=== PATIENT | female | born 1980 | race Caucasian/White ===

== ENCOUNTER 2018-12-28 15:39 | Emergency (ER) | payer OTHER ==
[2018-12-28] MEDS ORDERED: HYDROCODONE/APAP 10/325 TAB ONE (16:21)
[2018-12-28] MEDS ORDERED: dexAMETHasone 10 MG/ML VIAL ONE (16:21)
[2018-12-28] MEDS ORDERED: CYCLOBENZAPRINE 10 MG TAB ONE (16:21)
--- NOTE | 2018-12-28 16:58 | EDPHYS ---
Physician Documentation [facility] Name: Claire Bar Age: 38 yrs Sex: Female : 1980 Arrival Date: 12/28/2018 Time: 15:40 Bed 6 Private MD: Unknown, Unknown ED Physician Arturo Roy HPI: 12/28 16:23 This 38 yrs old Female presents to ER via Wheelchair with complaints of Back pm1 Pain. 16:23 The patient presents with pain that is acute. The symptoms are located in the low back. pm1 Onset: The symptoms/episode began/occurred this morning. The pain radiates to the left leg. Associated signs and symptoms: Pertinent negatives: dysuria, fever, incontinence, numbness, tingling. The problem was sustained when bending over. Modifying factors: The patient symptoms are alleviated by remaining still, the patient symptoms are aggravated by movement. Severity of symptoms: in the emergency department the symptoms are actually worse. The patient has experienced similar episodes in the past, multiple times, chronically. The patient has not recently seen a physician. Patient with reported herniated discs to between L3, L4, and L5 since 19 years of age. Has chronic pain with some flare up that are usually managed with OTC NSAIDs. Today she bent over to pickup something from the kitchen and got stuck. Took some NSAIDs prior to arrival without improvement . Historical: - Allergies: 15:47 No Known Allergies; la1 - PMHx: 15:47 None; la1 - Immunization history:: Adult Immunizations up to date. - Social history:: Smoking status: Patient/guardian denies using tobacco. - Ebola Screening: : No symptoms or risks identified at this time. ROS: 16:23 Constitutional: Negative for fever, chills, and weight loss, Eyes: Negative for injury, pm1 pain, redness, and discharge, ENT: Negative for injury, pain, and discharge, Neck: Negative for injury, pain, and swelling, Cardiovascular: Negative for chest pain, palpitations, and edema, Respiratory: Negative for shortness of breath, cough, wheezing, and pleuritic chest pain, Abdomen/GI: Negative for abdominal pain, nausea, vomiting, diarrhea, and constipation. 16:23 : Negative for injury, bleeding, discharge, and swelling, MS/Extremity: Negative for injury and deformity, Skin: Negative for injury, rash, and discoloration, Neuro: Negative for headache, weakness, numbness, tingling, and seizure. 16:23 Back: Positive for pain at rest, pain with movement, of the lumbar area. Exam: 16:30 Constitutional: This is a well developed, well nourished patient who is awake, alert, pm1 and in no acute distress. Head/Face: Normocephalic, atraumatic. Neck: Trachea midline, no thyromegaly or masses palpated, and no cervical lymphadenopathy. Supple, full range of motion without nuchal rigidity, or vertebral point tenderness. No Meningismus. Chest/axilla: Normal chest wall appearance and motion. Nontender with no deformity. No lesions are appreciated. Cardiovascular: Regular rate and rhythm with a normal S1 and S2. No gallops, murmurs, or rubs. Normal PMI, no JVD. No pulse deficits. Respiratory: Lungs have equal breath sounds bilaterally, clear to auscultation and percussion. No rales, rhonchi or wheezes noted. No increased work of breathing, no retractions or nasal flaring. Abdomen/GI: Soft, non-tender, with normal bowel sounds. No distension or tympany. No guarding or rebound. No evidence of tenderness throughout. 16:30 Skin: Warm, dry with normal turgor. Normal color with no rashes, no lesions, and no evidence of cellulitis. MS/ Extremity: Pulses equal, no cyanosis. Neurovascular intact. Full, normal range of motion. 16:30 Back: pain, of the lumbar area and left low back, normal spinal alignment noted. 16:30 Neuro: Orientation: is normal, Motor: is normal, moves all fours, Able to dorsiflex and plantar flex bilateral great toes 5/5 strength, Sensation: is normal, no obvious gross deficits. Vital Signs: 15:47 BP 133 / 87; Pulse 78; Resp 17; Temp 98.3; Pulse Ox 100% on R/A; Weight 73.48 kg; la1 Height 5 ft. 5 in. (165.10 cm); 15:53 BP 130 / 78; Pulse 80; Resp 16; Pulse Ox 100% ; bp 17:00 BP 133 / 94; Pulse 78; Resp 16; Pulse Ox 99% ; bp 15:47 Body Mass Index 26.96 (73.48 kg, 165.10 cm) la1 MDM: 15:57 Patient medically screened. pm1 16:29 ED course: No prescription history present for in [facility] . pm1 16:32 Data reviewed: vital signs. Data interpreted: Pulse oximetry: on room air is 100 %. pm1 Interpretation: normal. 16:56 Counseling: I had a detailed discussion with the patient and/or guardian regarding: the pm1 historical points, exam findings, and any diagnostic results supporting the discharge/admit diagnosis, the need for outpatient follow up, for definitive care, a family practitioner, a neurosurgeon, MRI and/or physical therapy if not considering surgery, to return to the emergency department if symptoms worsen or persist or if there are any questions or concerns that arise at home. Administered Medications: 16:20 Drug: Decadron 10 mg Route: IM; Site: affected area; bp 16:59 Follow up: Response: Pain is decreased bp 16:20 Drug: [place] 10 mg-325 mg 1 tabs Route: PO; bp 16:59 Follow up: Response: Pain is decreased bp 16:20 Drug: Flexeril 10 mg Route: PO; bp 16:59 Follow up: Response: Pain is decreased bp 17:00 Drug: fentaNYL (PF) 50 mcg Route: IM; Site: right gluteus; bp 17:17 Follow up: Response: Pain is decreased bp Disposition: 12/29 07:13 Co-signature as Attending Physician, Arturo Roy MD I agree with the assessment and kdr plan of care. Disposition: 12/28/18 16:57 Discharged to Home. Impression: Low back pain. - Condition is Stable. - Discharge Instructions: Back Pain, Adult, Herniated Disk. - Prescriptions for Tylenol- Codeine #3 300-30 mg Oral Tablet - take 2 tablets by ORAL route every 6 hours As needed; 20 tablet. Cyclobenzaprine 10 mg Oral Tablet - take 1 tablet by ORAL route every 8 hours As needed; 30 tablet. Medrol (Benedict) 4 mg Oral Tablets, Dose Pack - take 1 tablet by ORAL route as directed - follow package instructions; 1 packet. - Work release form, Medication Reconciliation Form, Thank You Letter, Antibiotic Education, Prescription Opioid Use form. - Follow up: Emergency Department; When: As needed; Reason: Worsening of condition. Follow up: Private Physician; When: 2 - 3 days; Reason: Recheck today's complaints, Continuance of care, Re-evaluation by your physician. - Problem is new. - Symptoms have improved. Signatures: Arturo Roy MD MD [facility] Duy Shepard RN RN la1 Juan Ordonez, LIVESTOCK BUYER LIVESTOCK BUYER pm1 Charles Argueta, RN RN bp Corrections: (The following items were deleted from the chart) 12/28 17:17 16:57 12/28/2018 16:57 Discharged to Home. Impression: Low back pain. Condition is bp Stable. Discharge Instructions: Back Pain, Adult, Herniated Disk. Prescriptions for Tylenol-Codeine #3 300-30 mg Oral Tablet - take 2 tablet by ORAL route every 6 hours As needed; 30 tablet, Cyclobenzaprine 10 mg Oral Tablet - take 1 tablet by ORAL route every 8 hours As needed; 30 tablet, Medrol (Benedict) 4 mg Oral Tablets, Dose Pack - take 1 tablet by ORAL route as directed - follow package instructions; 1 packet. and Forms are Medication Reconciliation Form, Thank You Letter, Antibiotic Education, Prescription Opioid Use. Follow up: Emergency Department; When: As needed; Reason: Worsening of condition. Follow up: Private Physician; When: 2 - 3 days; Reason: Recheck today's complaints, Continuance of care, Re-evaluation by your physician. Problem is new. Symptoms have improved. pm1
--- NOTE | 2018-12-28 16:58 | ER ---
Nurse's Notes [facility] Name: Claire Bar Age: 38 yrs Sex: Female : 1980 Arrival Date: 12/28/2018 Time: 15:40 Bed 6 Private MD: Unknown, Unknown Diagnosis: Low back pain Presentation: 12/28 15:46 Presenting complaint: Patient states: I bent over this morning to pick something up and la1 my back went out, I have some herniated disks, has happened a few times in the past. to advil at home. Transition of care: patient was not received from another setting of care. Onset of symptoms was December 28, 2018. Risk Assessment: Do you want to hurt yourself or someone else? Patient reports no desire to harm self or others. Initial Sepsis Screen: Does the patient meet any 2 criteria? No. Patient's initial sepsis screen is negative. Does the patient have a suspected source of infection? No. Patient's initial sepsis screen is negative. Care prior to arrival: None. 15:46 Method Of Arrival: Wheelchair la1 15:46 Acuity: KLEBER 4 la1 Triage Assessment: 15:51 General: Appears in no apparent distress. uncomfortable, obese, Behavior is bp cooperative, appropriate for age, anxious. Pain: Complains of pain in back. EENT: No deficits noted. Neuro: No deficits noted. Cardiovascular: No deficits noted. Respiratory: No deficits noted. GI: No signs and/or symptoms were reported involving the gastrointestinal system. : No signs and/or symptoms were reported regarding the genitourinary system. Derm: No deficits noted. Musculoskeletal: Circulation, motion, and sensation intact. Range of motion: intact in all extremities. Historical: - Allergies: 15:47 No Known Allergies; la1 - PMHx: 15:47 None; la1 - Immunization history:: Adult Immunizations up to date. - Social history:: Smoking status: Patient/guardian denies using tobacco. - Ebola Screening: : No symptoms or risks identified at this time. Screenin:00 Abuse screen: Denies threats or abuse. Denies injuries from another. Nutritional bp screening: No deficits noted. Tuberculosis screening: No symptoms or risk factors identified. Fall Risk None identified. Assessment: 15:51 General: SEE TRIAGE NOTE. Neuro: No deficits noted. bp 17:14 Reassessment: PT D/C HOME VIA W/C WITH FAMILY, DX WITH LUMBAR PAIN. bp Vital Signs: 15:47 BP 133 / 87; Pulse 78; Resp 17; Temp 98.3; Pulse Ox 100% on R/A; Weight 73.48 kg; la1 Height 5 ft. 5 in. (165.10 cm); 15:53 BP 130 / 78; Pulse 80; Resp 16; Pulse Ox 100% ; bp 17:00 BP 133 / 94; Pulse 78; Resp 16; Pulse Ox 99% ; bp 15:47 Body Mass Index 26.96 (73.48 kg, 165.10 cm) la1 ED Course: 15:40 Patient arrived in ED. ag5 15:40 Unknown, Unknown is Private Physician. ag5 15:47 Triage completed. la1 15:47 Arm band placed on left wrist. la1 15:51 Charles Argueta, RADHA is Primary Nurse. bp 15:54 Juan Ordonez NP is PHCP. pm1 15:54 Arturo Roy MD is Attending Physician. pm1 16:00 Patient has correct armband on for positive identification. Bed in low position. Call bp light in reach. Side rails up X2. Adult w/ patient. 17:15 No provider procedures requiring assistance completed. Patient did not have IV access bp during this emergency room visit. Administered Medications: 16:20 Drug: Decadron 10 mg Route: IM; Site: affected area; bp 16:59 Follow up: Response: Pain is decreased bp 16:20 Drug: [place] 10 mg-325 mg 1 tabs Route: PO; bp 16:59 Follow up: Response: Pain is decreased bp 16:20 Drug: Flexeril 10 mg Route: PO; bp 16:59 Follow up: Response: Pain is decreased bp 17:00 Drug: fentaNYL (PF) 50 mcg Route: IM; Site: right gluteus; bp 17:17 Follow up: Response: Pain is decreased bp Outcome: 16:57 Discharge ordered by . pm1 17:15 Discharged to home via wheelchair, with family. bp 17:15 Condition: improved 17:15 Discharge instructions given to patient, Instructed on discharge instructions, follow up and referral plans. medication usage, Demonstrated understanding of instructions, follow-up care, medications, Prescriptions given X 3. 17:17 Patient left the ED. bp Signatures: Duy Shepard RN RN la1 Juan Ordonez, AUGER MACHINE OFFBEARER AUGER MACHINE OFFBEARER pm1 Charles Argueta RN RN bp Nishant Gleason ag5 Corrections: (The following items were deleted from the chart) 15:47 15:47 BP 133 / 87; Pulse 78bpm; Resp 71bpm; Pulse Ox 100% RA; Temp 98.3F; 73.48 kg; la1 Height 5 ft. 5 in.; BMI: 26.9; la1
[2018-12-28] MEDS ORDERED: FENTANYL CITR 100 MCG/2 ML ONE (17:02)
[2018-12-28 18:52] VITALS: TEMP 98.3
[2018-12-28 18:54] VITALS: BP 133/94; O2SAT 99
== END 2018-12-28 17:17 | disposition home or self-care (01) ==
LOC: ER 15:39
DX: M54.5 Low back pain (principal)
CPT/HCPCS: 96372; 99283; J3010; J1100

== ENCOUNTER 2021-01-07 06:05 | Emergency (ER) | payer OTHER ==
[2021-01-07] MEDS ORDERED: TETRACAINE HCL 0.5% 4ML OPTH ONE (06:55)
[2021-01-07] MEDS ORDERED: FLUORESCEIN SODIUM 1 MG/WRAP ONE (06:55)
[2021-01-07] MEDS ORDERED: IBUPROFEN 400 MG TAB ONE (07:48)
[2021-01-07] MEDS ORDERED: HYDROCODONE/APAP 5/325 MG TAB ONE (07:48)
--- NOTE | 2021-01-07 08:13 | ER ---
Nurse's Notes [facility] Name: Claire Bar Age: 40 yrs Sex: Female : 1980 Arrival Date: 01/07/2021 Time: 06:08 Bed 8 Private MD: Diagnosis: Unspecified acute conjunctivitis, right eye Presentation: 01/07 06:17 Chief complaint: Patient states: pt took contact out of rt eye yesterday, c/o pain, sj1 redness, and blurry vision. dx with conjunctivitis of the left eye last week. Coronavirus screen: Vaccine status: Patient reports receiving the 2nd dose of the covid vaccine. Ebola Screen: No symptoms or risks identified at this time. Mechanism of Injury: No Mechanism of Injury. The patient denies any loss of vision. Initial Sepsis Screen: Does the patient meet any 2 criteria? No. Patient's initial sepsis screen is negative. Does the patient have a suspected source of infection? No. Patient's initial sepsis screen is negative. Risk Assessment: Do you want to hurt yourself or someone else? Patient reports no desire to harm self or others. Onset of symptoms was January 06, 2021. 06:17 Method Of Arrival: Ambulatory sj 06:17 Method Of Arrival: Ambulatory sj 06:17 Acuity: KLEBER 4 sj1 Triage Assessment: 06:21 General: Appears in no apparent distress. Behavior is calm, cooperative, appropriate sj1 for age. Pain: Complains of pain in rt eye Pain does not radiate. Pain currently is 10 out of 10 on a pain scale. at worst was 10 out of 10 on a pain scale. level that patient reports is acceptable is 0 out of 10 on a pain scale. Quality of pain is described as stabbing, Pain began gradually, Is continuous, Alleviated by nothing. EENT: Reports blurred vision in iris of right eye. Neuro: Level of Consciousness is awake, alert, obeys commands, Oriented to person, place, time, situation. Cardiovascular: No deficits noted. Respiratory: No deficits noted. GI: No signs and/or symptoms were reported involving the gastrointestinal system. : No signs and/or symptoms were reported regarding the genitourinary system. Derm: No signs and/or symptoms reported regarding the dermatologic system. Musculoskeletal: No signs and/or symptoms reported regarding the musculoskeletal system. 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 - Social history:: Smoking status: Patient denies any tobacco usage or history of. Patient uses alcohol, occasionally. Patient/guardian denies using street drugs. Screenin:24 Abuse screen: Denies threats or abuse. Denies injuries from another. Nutritional sj1 screening: No deficits noted. Tuberculosis screening: No symptoms or risk factors identified. Fall Risk None identified. Assessment: 06:24 EENT: Eyes Sclera/Cornea are reddened in outer aspect of conjuctiva of right eye and sj1 inner aspect of conjuctiva of right eye. Vital Signs: 06:17 BP 142 / 90; Pulse 91; Resp 18 S; Temp 98.9(O); Pulse Ox 100% on R/A; Weight 77.11 kg sj1 (R); Height 5 ft. 5 in. (165.10 cm); Pain 10/10; 06:17 Body Mass Index 28.29 (77.11 kg, 165.10 cm) sj1 Visual Acuity: 07:41 Left Eye Visual acuity 20/25, Pupil size 3 mm, ; Right Eye Visual acuity 20/50, Pupil ch5 size 3 mm, ; Both Eyes Visual acuity 20/25; With Lenses; ED Course: 06:08 Patient arrived in ED. bp1 06:21 Triage completed. sj1 06:21 Arm band placed on. sj1 06:24 Patient has correct armband on for positive identification. Bed in low position. Call 1 light in reach. Side rails up X 1. 06:24 No provider procedures requiring assistance completed. sj1 07:07 Deanne Molina, RN is Primary Nurse. iw 07:09 Vitaliy Barragan PA is PHCP. cp 07:09 Sb Gates MD is Attending Physician. cp 07:15 Attending Physician role handed off by Sb Gates MD [place] 07:15 Vitaliy Palafox MD is Attending Physician. solange 08:12 Jasmin Sorensen MD is Referral Physician. cp 09:08 Patient did not have IV access during this emergency room visit. iw Administered Medications: 07:14 Drug: Tetracaine Drops 0.5 % 1 drops {Note: Administered by Vitaliy ODOM.} Route: ch5 Ophthalmic; Site: left eye; 07:26 Drug: HYDROcodone-acetaminophen 5 mg-325 mg 1 tabs Route: Feeding Tube; ch5 07:26 Drug: Ibuprofen 800 mg Route: PO; ch5 07:45 Follow up: Response: No adverse reaction iw 09:02 Drug: Vigamox (moxifloxacin) Drops 0.5 % 1 drops Route: Ophthalmic; Site: right eye; ch5 Outcome: 08:12 Discharge ordered by . cp 09:08 Discharged to home ambulatory, with family. 5 09:08 Condition: improved 09:08 Discharge instructions given to patient, family, Prescriptions given X 1. 09:09 Patient left the ED. ch5 Signatures: Vitaliy Palafox MD MD cha Williams, Irene RN RN iw Vitaliy Barragan PA PA cp Paniauga, Brittany bp1 Heath, Christopher, RN RN ch5 Lenora Reyes RN RN sj1 Corrections: (The following items were deleted from the chart) 07:14 07:14 Tetracaine Drops 0.5 % 1 drops Ophthalmic in left eye ch5 ch5
--- NOTE | 2021-01-07 08:13 | EDPHYS ---
Physician Documentation [facility] Name: Claire Bar Age: 40 yrs Sex: Female : 1980 Arrival Date: 01/07/2021 Time: 06:08 Bed 8 Private MD: LARRY Physician Vitaliy Palafox HPI: 01/07 07:15 This 40 yrs old Female presents to ER via Ambulatory with complaints of Eye cp Problem, Eye Pain. 07:15 The patient is experiencing pain, redness, to the right eye. Onset: The cp symptoms/episode began/occurred yesterday. Duration: the symptoms are continuous. 07:15 Patient wears soft contacts. cp 07:15 Associated signs and symptoms: Pertinent negatives: ear ache, fever, runny nose, sore cp throat, drainage from eye. Patient reports pain and redness to right eye started yesterday after removing contact lens. Patient reports having similar symptoms 1 week ago and being prescribed eye drops. Patient reports symptoms seemed to improve and so she wore contact lenses yesterday and pain and redness to right eye started. 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 - Social history:: Smoking status: Patient denies any tobacco usage or history of. Patient uses alcohol, occasionally. Patient/guardian denies using street drugs. ROS: 07:15 Eyes: Positive for pain, redness, of the right eye, Negative for discharge, foreign cp body sensation. 07:15 Constitutional: Negative for fever. cp 07:15 ENT: Negative for drainage from ear(s), ear pain, sore throat, hoarseness. 07:15 Respiratory: Negative for cough, shortness of breath, wheezing. 07:15 Abdomen/GI: Negative for abdominal pain, nausea, vomiting, and diarrhea. 07:15 Skin: Negative for rash. 07:15 Neuro: Negative for altered mental status, headache. 07:15 All other systems are negative. Exam: 07:20 Constitutional: The patient appears in no acute distress, alert, awake, non-toxic, well cp developed, well nourished, uncomfortable. 07:20 Head/Face: Normocephalic, atraumatic. cp 07:20 Eyes: Periorbital structures: appear normal, Pupils: equal, round, and reactive to light and accomodation, Extraocular movements: intact throughout, Conjunctiva: injected, in the right eye, Corneas: abrasion, is not appreciated, foreign body, is not appreciated, a fluorescein strip employed to appreciate the findings, Sclera: no appreciated abnormality, Lids and lashes: appear normal, bilaterally, Examination of the other eye reveals no obvious gross abnormality. 07:20 ENT: External ear(s): are unremarkable, Nose: is normal, Mouth: Lips: moist, Oral mucosa: moist, Posterior pharynx: Airway: no evidence of obstruction, patent. 07:20 Neck: ROM/movement: is normal, is supple, without pain, no range of motions limitations, Lymph nodes: no appreciated lymphadenopathy. 07:20 Chest/axilla: Inspection: normal. 07:20 Cardiovascular: Rate: normal. 07:20 Respiratory: the patient does not display signs of respiratory distress, Respirations: normal. 07:20 Skin: cellulitis, is not appreciated, no rash present. Vital Signs: 06:17 BP 142 / 90; Pulse 91; Resp 18 S; Temp 98.9(O); Pulse Ox 100% on R/A; Weight 77.11 kg sj1 (R); Height 5 ft. 5 in. (165.10 cm); Pain 10/10; 06:17 Body Mass Index 28.29 (77.11 kg, 165.10 cm) sj1 Visual Acuity: 07:41 Left Eye Visual acuity 20/25, Pupil size 3 mm, ; Right Eye Visual acuity 20/50, Pupil ch5 size 3 mm, ; Both Eyes Visual acuity 20/25; With Lenses; MDM: 07:15 Patient medically screened. solange 07:30 Differential diagnosis: Corneal abrasion of Corneal ulcer of Foreign body in Acute cp iritis of 08:11 Data reviewed: vital signs, nurses notes, and as a result, I will discharge patient. cp 08:11 Counseling: I had a detailed discussion with the patient and/or guardian regarding: the cp historical points, exam findings, and any diagnostic results supporting the discharge/admit diagnosis, the need for outpatient follow up, an opthalmologist, to return to the emergency department if symptoms worsen or persist or if there are any questions or concerns that arise at home. 01/07 07:09 Order name: Eye Tray cp 01/07 07:09 Order name: Fluoresene Opth strip cp 01/07 07:09 Order name: Visual Acuity; Complete Time: 07:41 cp Administered Medications: 07:14 Drug: Tetracaine Drops 0.5 % 1 drops {Note: Administered by Vitaliy ODOM.} Route: ch5 Ophthalmic; Site: left eye; 07:26 Drug: HYDROcodone-acetaminophen 5 mg-325 mg 1 tabs Route: Feeding Tube; 5 07:26 Drug: Ibuprofen 800 mg Route: PO; 5 07:45 Follow up: Response: No adverse reaction iw 09:02 Drug: Vigamox (moxifloxacin) Drops 0.5 % 1 drops Route: Ophthalmic; Site: right eye; 5 Disposition Summary: 01/07/21 08:12 Discharge Ordered Location: Home cp Problem: new cp Symptoms: have improved cp Condition: Stable cp Diagnosis - Unspecified acute conjunctivitis, right eye cp Followup: cp - With: Jasmin Sorensen MD - When: 1 - 2 days - Reason: Recheck today's complaints Discharge Instructions: - Discharge Summary Sheet cp - Bacterial Conjunctivitis, Adult cp - How to Use Eye Drops and Eye Ointments cp Forms: - Medication Reconciliation Form cp - Thank You Letter cp - Antibiotic Education cp - Prescription Opioid Use cp - Work release form eb Prescriptions: - Vigamox 0.5 % Ophthalmic Drops - instill 1 drop by OPHTHALMIC route every 8 hours for 7 days; 5 milliliter; cp Refills: 0, Product Selection Permitted Addendum: 01/10/2021 10:21 Co-signature as Attending Physician, Vitaliy Palafox MD I agree with the assessment and c walls plan of care. Signatures: Vitaliy Palafox MD MD cha Page, Corey, PA PA cp Heath, Christopher, RN RN ch5 Lenora Reyes RN RN sj1 Deanne Molina RN iw Corrections: (The following items were deleted from the chart) 01/08 07:13 01/07 07:15 Patient reports pain and redness to right eye started yesterday after cp removing contact lens. cp
[2021-01-07] MEDS ORDERED: MOXIFLOXACIN HCL 0.5% 3ML OPTH OPTH SCH (09:00)
[2021-01-07 09:14] VITALS: BP 142/90; TEMP 98.9; O2SAT 100
== END 2021-01-07 09:09 | disposition home or self-care (01) ==
LOC: ER 06:05
DX: H10.31 Unspecified acute conjunctivitis, right eye (principal); I10 Essential (primary) hypertension
CPT/HCPCS: 99283

== ENCOUNTER 2021-01-11 14:07 | Emergency (ER) | payer OTHER ==
[2021-01-11] MEDS ORDERED: dexAMETHasone 10 MG/ML VIAL ONE (15:01)
[2021-01-11] MEDS ORDERED: MEPERIDINE HCL 50 MG/ML ONE (15:01)
--- NOTE | 2021-01-11 15:13 | EDPHYS ---
Physician Documentation [facility] Name: Claire Bar Age: 40 yrs Sex: Female : 1980 Arrival Date: 01/11/2021 Time: 14:09 Bed 10 Private MD: ED Physician Sb Gates HPI: 01/11 15:05 This 40 yrs old Female presents to ER via Wheelchair with complaints of Back rn Pain. 15:05 The patient presents with pain that is acute. The symptoms are located in the low back. rn 15:05 Onset: The symptoms/episode began/occurred last night. The pain radiates to the left rn leg. Associated signs and symptoms: Pertinent negatives: abdominal pain, chest pain, constipation, dysuria, fever, headache, hematuria, incontinence, nausea, numbness, tingling, urinary retention, vomiting, weakness. Modifying factors: The patient symptoms are alleviated by remaining still, the patient symptoms are aggravated by any movement. Severity of symptoms: At their worst the symptoms were moderate, in the emergency department the symptoms are unchanged. The patient has experienced similar episodes in the past. The patient has not recently seen a physician. Patient reports bent over to pick something up last night and began again with lower back pain. Feels muscle spasm of back. No focal weakness or bladder or bowel problems. No fever. No direct trauma to the spine. Ambulatory. States this is happened multiple times in the past. No new symptoms. 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 - Social history:: Smoking status: Patient denies any tobacco usage or history of. - Family history:: not pertinent. - Hospitalizations: : No recent hospitalization is reported. ROS: 15:05 Constitutional: Negative for fever, chills, and weight loss, Cardiovascular: Negative rn for chest pain, palpitations, and edema, Respiratory: Negative for shortness of breath, cough, wheezing, and pleuritic chest pain, Abdomen/GI: Negative for abdominal pain, nausea, vomiting, diarrhea, and constipation, Back: Positive for left lower back pain : Negative for injury, bleeding, discharge, and swelling, MS/Extremity: Negative for injury and deformity, Skin: Negative for injury, rash, and discoloration, Neuro: Negative for headache, weakness, numbness, tingling, and seizure. Exam: 15:05 Constitutional: This is a well developed, well nourished patient who is awake, alert, rn appears uncomfortable sitting in wheelchair Head/Face: Normocephalic, atraumatic. Back: No spinal tenderness. Skin: Warm, dry MS/ Extremity: Pulses equal, no cyanosis. Neurovascular intact. Full, normal range of motion. Equal circumference. Neuro: Awake and alert, GCS 15. Motor strength 5/5 in all extremities. Sensory grossly intact. Vital Signs: 14:23 BP 151 / 90; Pulse 83; Resp 17; Temp 97.7(O); Pulse Ox 99% on R/A; Weight 77.11 kg; ap3 Height 5 ft. 5 in. (165.10 cm); Pain 9/10; 15:00 BP 148 / 85; Pulse 80; Resp 18; Temp 97.9(O); Pulse Ox 99% on R/A; sl2 14:23 Body Mass Index 28.29 (77.11 kg, 165.10 cm) ap3 MDM: 14:19 Patient medically screened. rn 15:05 Differential diagnosis: arthritis, chronic back pain, Osteoarthritis sprain, Muscle rn spasm, radiculopathy. Data reviewed: vital signs, nurses notes, and as a result, I will discharge patient. Counseling: I had a detailed discussion with the patient and/or guardian regarding: the historical points, exam findings, and any diagnostic results supporting the discharge/admit diagnosis, the need for outpatient follow up, to return to the emergency department if symptoms worsen or persist or if there are any questions or concerns that arise at home. Response to treatment: the patient's symptoms have markedly improved after treatment, and as a result, I will discharge patient. Special discussion: I discussed with the patient/guardian in detail that at this point there is no indication for admission to the hospital. It is understood, however, that if the symptoms persist or worsen the patient needs to return immediately for re-evaluation. Based on the history and exam findings, there is no indication for further emergent testing or inpatient evaluation. I discussed with the patient/guardian the need to see the back specialist for further evaluation of the symptoms. 15:05 ED course: No new symptoms, pain and symptoms identical to previous chronic back pain rn episodes. No direct trauma. No indication for emergent imaging at this time. Feels better, will DC home with PCP follow-up and return precautions. 01/11 14:29 Order name: IV Start; Complete Time: 14:56 rn Administered Medications: 02:49 Drug: Decadron - Dexamethasone 10 mg Route: IVP; Site: left antecubital; sl2 15:30 Follow up: Response: No adverse reaction; Pain is decreased sl2 02:53 Drug: Demerol (meperidine) 50 mg Route: IVP; Site: left antecubital; sl2 15:30 Follow up: Response: No adverse reaction; Pain is decreased sl2 Disposition Summary: 01/11/21 15:12 Discharge Ordered Location: Home rn Problem: new rn Symptoms: have improved rn Condition: Stable rn Diagnosis - Low back pain rn - Muscle spasm of back rn - Intervertebral disc disorders with radiculopathy, lumbar region rn Followup: rn - With: Private Physician - When: As needed - Reason: Recheck today's complaints, Re-evaluation by your physician Discharge Instructions: - Discharge Summary Sheet rn - Acute Back Pain, Adult rn - Lumbosacral Radiculopathy rn - Muscle Cramps and Spasms rn Forms: - Medication Reconciliation Form rn - Thank You Letter rn - Antibiotic kinesiology internship - Prescription Opioid Use rn - Work release form ap3 Prescriptions: - Cyclobenzaprine 10 mg Oral Tablet - take 1 tablet by ORAL route every 8 hours As needed; 15 tablet; Refills: 0, rn Product Selection Permitted - Medrol (Benedict) 4 mg Oral Tablets, Dose Pack - take 1 tablet by ORAL route as directed - follow package instructions; 1 rn packet; Refills: 0, Product Selection Permitted Signatures: Sb Gates MD MD rn Lindsay Lee RN RN ap3 Reema Jean RN RN sl2
--- NOTE | 2021-01-11 15:13 | ER ---
Nurse's Notes [facility] Name: Claire Bar Age: 40 yrs Sex: Female : 1980 Arrival Date: 01/11/2021 Time: 14:09 Bed 10 Private MD: Diagnosis: Low back pain;Muscle spasm of back;Intervertebral disc disorders with radiculopathy, lumbar region Presentation: 01/11 14:23 Chief complaint: Patient states: she knelt over last night, and she felt her back was ap3 "locked up". Patient states she has taken Motrin, Tylenol and Ibuprofen with no relief. Coronavirus screen: At this time, the client does not indicate any symptoms associated with coronavirus-19. Ebola Screen: No symptoms or risks identified at this time. Initial Sepsis Screen: Does the patient meet any 2 criteria? No. Patient's initial sepsis screen is negative. Does the patient have a suspected source of infection? No. Patient's initial sepsis screen is negative. Risk Assessment: Do you want to hurt yourself or someone else? Patient reports no desire to harm self or others. Onset of symptoms was January 10, 2021. 14:23 Method Of Arrival: Wheelchair ap3 14:23 Acuity: KLEBER 4 ap3 Triage Assessment: 14:25 General: Appears uncomfortable, Behavior is calm, cooperative. Pain: Complains of pain ap3 in low back area Pain radiates to thoracic area and lumbar area Pain currently is 9 out of 10 on a pain scale. Neuro: Level of Consciousness is awake, alert, obeys commands, Oriented to person, place, time, situation. Cardiovascular: Patient's skin is warm and dry. Respiratory: Airway is patent. Musculoskeletal: Range of motion: intact in all extremities. 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 - Social history:: Smoking status: Patient denies any tobacco usage or history of. - Family history:: not pertinent. - Hospitalizations: : No recent hospitalization is reported. Screenin:26 Abuse screen: Denies threats or abuse. Nutritional screening: No deficits noted. ap3 Tuberculosis screening: No symptoms or risk factors identified. Fall Risk None identified. Assessment: 14:56 Neuro: No deficits noted. sl2 15:06 Pain: Complains of pain in left leg and lumbar area and thoracic area and back and low sl2 back area Pain radiates to left leg and lumbar area and thoracic area and back and low back area Pain currently is 7 out of 10 on a pain scale. at worst was 10 out of 10 on a pain scale. level that patient reports is acceptable is 2 out of 10 on a pain scale. Quality of pain is described as aching, sharp, shooting. Neuro: No deficits noted. Vital Signs: 14:23 BP 151 / 90; Pulse 83; Resp 17; Temp 97.7(O); Pulse Ox 99% on R/A; Weight 77.11 kg; ap3 Height 5 ft. 5 in. (165.10 cm); Pain 9/10; 15:00 BP 148 / 85; Pulse 80; Resp 18; Temp 97.9(O); Pulse Ox 99% on R/A; sl2 14:23 Body Mass Index 28.29 (77.11 kg, 165.10 cm) ap3 ED Course: 14:09 Patient arrived in ED. ds1 14:19 Sb Gates MD is Attending Physician. rn 14:23 Lindsay Lee, RADHA is Primary Nurse. ap3 14:25 Triage completed. ap3 14:26 Arm band placed on left wrist. ap3 14:27 Patient has correct armband on for positive identification. Pulse ox on. NIBP on. Door ap3 closed. Noise minimized. 14:55 Reema Jean, RADHA is Primary Nurse. sl2 14:56 No provider procedures requiring assistance completed. Inserted saline lock: 20 gauge sl2 in left antecubital area, using aseptic technique. 15:06 IV is patent, is intact, with fluids infusing freely, with good blood return. sl2 15:31 IV discontinued. sl2 Administered Medications: 02:49 Drug: Decadron - Dexamethasone 10 mg Route: IVP; Site: left antecubital; sl2 15:30 Follow up: Response: No adverse reaction; Pain is decreased sl2 02:53 Drug: Demerol (meperidine) 50 mg Route: IVP; Site: left antecubital; sl2 15:30 Follow up: Response: No adverse reaction; Pain is decreased sl2 Outcome: 15:12 Discharge ordered by . rn 15:30 Discharged to home via wheelchair. sl2 15:30 Discharged to home with family. 15:30 Condition: stable 15:30 Discharge instructions given to patient, family, Instructed on discharge instructions, follow up and referral plans. no drinking with medication, no driving heavy equipment, medication usage, Demonstrated understanding of instructions, follow-up care, medications. 15:32 Patient left the ED. sl2 Signatures: Adriana Portillo ds1 Sb Gates MD MD rn Prokisch, Amanda, RN RN ap3 Reema Jean RN RN sl2
[2021-01-11 17:59] VITALS: O2SAT 99
[2021-01-11 18:01] VITALS: BP 148/85; TEMP 97.9
== END 2021-01-11 15:32 | disposition home or self-care (01) ==
LOC: ER 14:07
DX: M62.830 Muscle spasm of back (principal); M51.16 Intervertebral disc disorders with radiculopathy, lumbar region; I10 Essential (primary) hypertension; Z88.0 Allergy status to penicillin
CPT/HCPCS: 96375; 96374; 99283; J1100; J2175

== ENCOUNTER 2023-09-19 08:50 | Emergency (ER) | payer BC ==
[2023-09-19] MEDS ORDERED: FLUORESCEIN SODIUM 1 MG/WRAP ONE (09:37)
[2023-09-19] MEDS ORDERED: TETRACAINE HCL 0.5% 4ML OPTH ONE (09:38)
[2023-09-19] MEDS ORDERED: TOBRAMYCIN SULF 0.3% OPTH OINT ONE (09:53)
[2023-09-19] MEDS ORDERED: CYCLOPENTOLATE 2% OPTH 2 ML ONE (09:53)
[2023-09-19] MEDS ORDERED: HYDROCODONE/APAP 7.5/325 MG TAB ONE (09:53)
--- NOTE | 2023-09-19 09:58 | ER ---
Nurse's Notes [facility] Name: Claire Dewey Age: 43 yrs Sex: Female : 1980 Arrival Date: 09/19/2023 Time: 08:50 Bed 13 Private MD: Diagnosis: Other conjunctivitis-left eye;Ocular pain, left eye Presentation: 09/18 09:00 Chief complaint: Patient states: LEFT EYE REDNESS STATES WOKE UP THIS AM WITH IT. TRIED db CONTACT AND SOLUTION DID NOT HELP. DENIES SLEEPING IN CONTACTS. Coronavirus screen: Client denies travel out of the [place] in the last 14 days. At this time, the client does not indicate any symptoms associated with coronavirus-19. Ebola Screen: Patient negative for fever greater than or equal to 101.5 degrees Fahrenheit, and additional compatible Ebola Virus Disease symptoms Patient denies exposure to infectious person. Patient denies travel to an Ebola-affected area in the 21 days before illness onset. No symptoms or risks identified at this time. Initial Sepsis Screen: Does the patient meet any 2 criteria? No. Patient's initial sepsis screen is negative. Does the patient have a suspected source of infection? No. Patient's initial sepsis screen is negative. Risk Assessment: Do you want to hurt yourself or someone else? Patient reports no desire to harm self or others. Onset of symptoms was September 19, 2023. 09:00 Method Of Arrival: Ambulatory db 09:00 Acuity: KLEBER 4 db Triage Assessment: 09:16 General: Appears in no apparent distress. comfortable, Behavior is calm, cooperative. db Pain: Complains of pain in left eye. EENT: Eyes are tearing on outer aspect of conjuctiva of left eye, iris of left eye and inner aspect of conjunctiva of left eye Sclera/Cornea are reddened in outer aspect of conjuctiva of left eye and inner aspect of conjunctiva of left eye. Neuro: No deficits noted. Level of Consciousness is awake, alert, obeys commands, Oriented to person, place, time, situation. Respiratory: Airway is patent Respiratory effort is even, unlabored, Respiratory pattern is regular, symmetrical. 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 - Infectious Disease History:: Denies. - Social history:: Smoking status: Patient denies any tobacco usage or history of. Screenin:14 [facility] ED Fall Risk Assessment (Adult) History of falling in the last 3 months, nj1 including since admission No falls in past 3 months (0 pts) Confusion or Disorientation No (0 pts) Intoxicated or Sedated No (0 pts) Impaired Gait No (0 pts) Mobility Assist Device Used No (0 pt) Altered Elimination No (0 pt) Score/Fall Risk Level 0 - 2 = Low Risk. [facility] ED Fall Risk Assessment (Adult) Score/Fall Risk Level 0 - 2 = Low Risk Oriented to surroundings, Maintained a safe environment, Hourly rounding (assess needs \T\ fall precautionary measures) done. Abuse screen: Denies threats or abuse. Denies injuries from another. Nutritional screening: No deficits noted. Tuberculosis screening: No symptoms or risk factors identified. Vital Signs: 09:05 BP 142 / 82; Pulse 97; Resp 16; Temp 98.2(TE); Pulse Ox 100% on R/A; bc6 10:14 BP 139 / 87; Pulse 85; Resp 16; Pulse Ox 100% on R/A; nj1 ED Course: 08:52 Patient arrived in ED. im 09:08 Vitaliy Javier MD is Attending Physician. solange 09:08 Yee Trevizo, RN is Primary Nurse. db 09:16 Triage completed. db 09:16 Arm band placed on Patient placed in an exam room. db 09:57 Andrés Bruce MD is Referral Physician. solange 10:08 Dressings: Eye patch X 1 left upper eyelid, left outer canthus, outer aspect of oe conjuctiva of left eye, iris of left eye, inner aspect of conjunctiva of left eye, left inner canthus and left lower eyelid. 10:15 Patient has correct armband on for positive identification. Call light in reach. nj1 Provided Education on: discharge instructions. 10:16 No provider procedures requiring assistance completed. Patient did not have IV access nj1 during this emergency room visit. Administered Medications: 09:50 Drug: Tetracaine Topical Solution (0.5 %) 2 application Topical once {Note: USED BY DR. earl JAVIER.} Route: Topical; Site: affected area; 10:17 Follow up: Response: No adverse reaction nj1 10:00 Drug: Tobramycin Ophthalmic Ointment (0.3 %) 1 inches Ophthalmic once Route: db Ophthalmic; Site: left eye; 10:17 Follow up: Response: No adverse reaction nj1 10:00 Drug: Hydrocodone-Acetaminophen PO (7.5 mg-325 mg) 1 tabs PO once Route: PO; db 10:17 Follow up: Response: No adverse reaction nj1 10:00 Drug: Cyclopentolate Ophthalmic Drops (1 %) 1 drops Ophthalmic once Route: Ophthalmic; db Site: left eye; 10:16 Follow up: Response: No adverse reaction nj1 Medication: 10:16 VIS not applicable for this client. nj1 Outcome: 09:58 Discharge ordered by . solange 10:16 Discharged to home ambulatory, nj1 10:16 Condition: stable 10:16 Discharge instructions given to patient, Instructed on discharge instructions, follow up and referral plans. medication usage, Demonstrated understanding of instructions, follow-up care, medications, Prescriptions given X 1, 10:17 Patient left the ED. nj1 Signatures: Vitaliy Javier MD MD cha Espinosa, Orlando oe Benton, Danielle, RN RN Awilda Raymundo [facility] Keshia Gregorio RN RN nj1 Mary Almanza im
--- NOTE | 2023-09-19 09:58 | EDPHYS ---
Physician Documentation [facility] Name: Claire Dewey Age: 43 yrs Sex: Female : 1980 Arrival Date: 09/19/2023 Time: 08:50 Bed 13 Private MD: Vitaliy Oviedo HPI: 09/18 09:49 This 43 yrs old Female presents to ER via Ambulatory with complaints of Eye solange Problem. 09:49 The patient is experiencing burning, foreign body sensation, pain, redness, tearing, to solange the left eye. Onset: The symptoms/episode began/occurred 2 day(s) ago. 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 - Infectious Disease History:: Denies. - Social history:: Smoking status: Patient denies any tobacco usage or history of. ROS: 09:53 Constitutional: Negative for fever, chills, and weight loss, ENT: Negative for injury, solange pain, and discharge, Neck: Negative for injury, pain, and swelling, Cardiovascular: Negative for chest pain, palpitations, and edema, Respiratory: Negative for shortness of breath, cough, wheezing, and pleuritic chest pain, Abdomen/GI: Negative for abdominal pain, nausea, vomiting, diarrhea, and constipation, Back: Negative for injury and pain, : Negative for injury, bleeding, discharge, and swelling, MS/Extremity: Negative for injury and deformity, Skin: Negative for injury, rash, and discoloration, Neuro: Negative for headache, weakness, numbness, tingling, and seizure, Psych: Negative for depression, anxiety, suicide ideation, homicidal ideation, and hallucinations, Allergy/Immunology: Negative for hives, rash, and allergies, Endocrine: Negative for neck swelling, polydipsia, polyuria, polyphagia, and marked weight changes, Hematologic/Lymphatic: Negative for swollen nodes, abnormal bleeding, and unusual bruising, 09:53 Eyes: Positive for pain, swelling, tearing, Exam: 09:53 Constitutional: This is a well developed, well nourished patient who is awake, alert, solange and in no acute distress. Head/Face: Normocephalic, atraumatic. ENT: Nares patent. No nasal discharge, no septal abnormalities noted. Tympanic membranes are normal and external auditory canals are clear. Oropharynx with no redness, swelling, or masses, exudates, or evidence of obstruction, uvula midline. Mucous membranes moist. Neck: Trachea midline, no thyromegaly or masses palpated, and no cervical lymphadenopathy. Supple, full range of motion without nuchal rigidity, or vertebral point tenderness. No Meningismus. Chest/axilla: Normal chest wall appearance and motion. Nontender with no deformity. No lesions are appreciated. Cardiovascular: Regular rate and rhythm with a normal S1 and S2. No gallops, murmurs, or rubs. Normal PMI, no JVD. No pulse deficits. Respiratory: Lungs have equal breath sounds bilaterally, clear to auscultation and percussion. No rales, rhonchi or wheezes noted. No increased work of breathing, no retractions or nasal flaring. Abdomen/GI: Soft, non-tender, with normal bowel sounds. No distension or tympany. No guarding or rebound. No evidence of tenderness throughout. Back: No spinal tenderness. No costovertebral tenderness. Full range of motion. Skin: Warm, dry with normal turgor. Normal color with no rashes, no lesions, and no evidence of cellulitis. MS/ Extremity: Pulses equal, no cyanosis. Neurovascular intact. Full, normal range of motion. Neuro: Awake and alert, GCS 15, oriented to person, place, time, and situation. Cranial nerves II-XII grossly intact. Motor strength 5/5 in all extremities. Sensory grossly intact. Cerebellar exam normal. Normal gait. 09:53 Eyes: Periorbital structures: appear normal, no acute changes, Pupils: no acute changes, equal, round, and reactive to light and accomodation, Extraocular movements: no acute changes, Conjunctiva: injected, in the left eye, Corneas: are normal, no acute changes, Anterior chamber: normal, no acute changes, Lids and lashes: appear normal, funduscopic exam reveals no obvious abnormalities, Vital Signs: 09:05 BP 142 / 82; Pulse 97; Resp 16; Temp 98.2(TE); Pulse Ox 100% on R/A; bc6 10:14 BP 139 / 87; Pulse 85; Resp 16; Pulse Ox 100% on R/A; nj1 MDM: 09:08 Patient medically screened. [facility] 09:54 Differential diagnosis: Corneal abrasion of Corneal ulcer of Foreign body in Acute solange iritis of Acute glaucoma in Ultraviolet keratitis in left eye. Data reviewed: vital signs, nurses notes, lab test result(s), EKG, radiologic studies. Consideration of Admission/Observation Escalation of care including admission/observation considered. I considered the following discharge prescriptions or medication management in the emergency department Medications were administered in the Emergency Department. See MAR. Test considered but Not performed: Labs: no cbc, no cmp. Care significantly affected by the following chronic conditions: Hypertension, smoker. 09/18 09:49 Order name: Eye Tray; Complete Time: 09:50 [facility] 09/18 09:49 Order name: Misc. Order: patch eye; Complete Time: 10:16 solange Administered Medications: 09:50 Drug: Tetracaine Topical Solution (0.5 %) 2 application Topical once {Note: USED BY DR. earl JAVIER.} Route: Topical; Site: affected area; 10:17 Follow up: Response: No adverse reaction nj1 10:00 Drug: Tobramycin Ophthalmic Ointment (0.3 %) 1 inches Ophthalmic once Route: db Ophthalmic; Site: left eye; 10:17 Follow up: Response: No adverse reaction nj1 10:00 Drug: Hydrocodone-Acetaminophen PO (7.5 mg-325 mg) 1 tabs PO once Route: PO; db 10:17 Follow up: Response: No adverse reaction nj1 10:00 Drug: Cyclopentolate Ophthalmic Drops (1 %) 1 drops Ophthalmic once Route: Ophthalmic; db Site: left eye; 10:16 Follow up: Response: No adverse reaction nj1 Disposition Summary: 09/19/23 09:58 Discharge Ordered Notes: Location: Home solange Problem: new solange Symptoms: have improved solange Condition: Stable solange Diagnosis - Other conjunctivitis - left eye solange - Ocular pain, left eye solange Followup: solange - With: Private Physician - When: Upon discharge from the Emergency Department - Reason: Recheck today's complaints, Re-evaluation by your physician Followup: solange - With: Andrés Bruce MD - When: - Reason: Recheck today's complaints, Re-evaluation by your physician Discharge Instructions: - Discharge Summary Sheet solange - Bacterial Conjunctivitis, Adult [facility] Forms: - Medication Reconciliation Form solange - Antibiotic Education solange - Prescription Opioid Use solange - Patient Portal Instructions solange - Leadership Thank You Letter [facility] Prescriptions: - Tobrex 0.3 % Ophthalmic ointment - instill 1 application OPHTHALMIC route every 4 to 6 hours for 7 days; 3.5 solange application; Refills: 0, Product Selection Permitted Signatures: Vitaliy Javier MD MD cha Benton, Danielle, RN RN db Keshia Gregorio RN nj1
[2023-09-19 10:36] VITALS: BP 139/87; TEMP 98.2; O2SAT 100
== END 2023-09-19 10:17 | disposition home or self-care (01) ==
LOC: ER 08:50
DX: H10.89 Other conjunctivitis (principal)
CPT/HCPCS: 99283